=== PATIENT | female | born 1935 | race Caucasian/White ===

== ENCOUNTER → 2019-06-28 | Outpatient (CLI) | payer OTHER ==
--- NOTE | 2019-06-28 12:06 | Diagnostic Imaging Report ---
EXAMINATION: HIPS BILAT 3-4VWS (+/- PELVIS) INDICATION: Osteoarthritis COMPARISON: None FINDINGS: AP and frog-leg views of both hips were obtained. No acute fracture or dislocation. Alignment is anatomic. Mild degenerative changes of both hip joints with mild joint space narrowing and small osteophyte formation. A mortise calcification adjacent to the left greater trochanter is compatible with gluteal calcific tendinopathy. Phleboliths in the pelvis. IMPRESSION: No acute osseous injury. Degenerative changes of both hip joints. Left gluteal calcific tendinopathy. Signed by: Fernanda Espinal MD on 06/28/2019 12:02 PM
== END ==
LOC: RAD 10:15
PROVIDERS: ATTEND Internal Medicine Medical Oncology
DX: M16.0 Bilateral primary osteoarthritis of hip (principal)
CPT/HCPCS: 73522

== ENCOUNTER → 2023-07-19 | Outpatient (REF) | payer MEDICARE ==
[~2023-07-19] MED LIST: AMLODIPINE BESY10 MG PO; CLONIDINE HCL0.1 MG PO; FAMOTIDINE40 MG PO; LISINOPRIL40 MG PO; OMEPRAZOLE40 MG PO; SERTRALINE HCL100 MG PO; SUCRALFATE1 GM PO
== END ==
LOC: RAD 12:21
PROVIDERS: ATTEND Internal Medicine
DX: M54.50 Low back pain, unspecified (principal); M54.6 Pain in thoracic spine
CPT/HCPCS: 72072; 72110

== ENCOUNTER 2025-05-10 08:40 | Inpatient (IN) | payer MEDICARE ==
[2025-05-10] VITALS (7 sets, daily range): BP systolic 120–188; BP diastolic 38–80; PULSE 62–77; RESP 16–18; TEMP 97.6–98.7; O2SAT 90–100
[~2025-05-10] VITALS: Ht 160 cm; Wt 55.3 kg
[~2025-05-10 08:40] MED LIST changes: +CEFDINIR300 MG PO; +ZESTRIL40 MG PO
[2025-05-10 09:27] LABS: BASOPHILS % 1.2 % (0.0-1.0); EOSINOPHILS % 1.2 % (0.0-6.0); LYMPHOCYTES % 11.9 % (18.0-39.1); MONOCYTES % 9.0 % (4.4-11.3); NEUTROPHILS % 76.4 % (38.7-80.0); RED CELL DISTRIBUTION WIDTH 13.8 % (11.7-14.4)
[2025-05-10 10:01] LABS: EST GLOMERULAR FILTRATION RATE 39.0 ML/MIN (>=60)
[2025-05-10] MEDS: HYDROCHLOROTHIAZIDE 25 MG TAB PO ONE (10:15)
[2025-05-10] MEDS: AMLODIPINE BESYLATE 10 MG TAB PO ONE (10:15)
[2025-05-10] MEDS ORDERED: SODIUM CHLORIDE FLUSH 10 ML SYR INJ PRN (10:15)
[2025-05-10 15:36] LABS: % IRON SATURATION 6.0 % (15-50)
[2025-05-10] MEDS ORDERED: HYDROCHLOROTHIA25 MG PO (15:52)
[2025-05-10] MEDS ORDERED: CLONIDINE HCL0.1 MG PO (15:54)
[2025-05-10] MEDS: HYDRALAZINE HCL 20 MG/ML VIAL IV PRN (16:07)
[2025-05-10] MEDS ORDERED: POLYETHYLENE GLYCOL 3350 17 GM PACK PO PRN (18:30)
[2025-05-10] MEDS ORDERED: ACETAMINOPHEN 325 MG TAB PO PRN (18:30)
[2025-05-10] MEDS: MELATONIN 5 MG TABLET PO ONE (20:44)
[2025-05-11] VITALS (8 sets, daily range): BP systolic 141–174; BP diastolic 45–58; PULSE 70–77; RESP 16–18; TEMP 97.9–99.1; O2SAT 100
[2025-05-11 06:44] LABS: BASOPHILS % 1.1 % (0.0-1.0); EOSINOPHILS % 1.8 % (0.0-6.0); LYMPHOCYTES % 11.4 % (18.0-39.1); MONOCYTES % 11.4 % (4.4-11.3); NEUTROPHILS % 74.0 % (38.7-80.0); RED CELL DISTRIBUTION WIDTH 13.6 % (11.7-14.4)
[2025-05-11 07:32] LABS: EST GLOMERULAR FILTRATION RATE 39.0 ML/MIN (>=60)
[2025-05-11] MEDS ORDERED: SODIUM FERRIC GLUCONATE COMPLX 125 MG in SODIUM CHLORIDE 0.9% 100 ML IV SCH (09:00)
[2025-05-11] MEDS: DOCUSATE SODIUM 100 MG CAP PO SCH (09:00)
[2025-05-11] MEDS: SENNOSIDES 8.6 MG TAB PO SCH (09:00)
[2025-05-11] MEDS: AMLODIPINE BESYLATE 10 MG TAB PO SCH (09:07)
[2025-05-11] MEDS: HYDROCHLOROTHIAZIDE 25 MG TAB PO SCH (09:07)
[2025-05-11] MEDS: LISINOPRIL 20 MG TAB PO SCH (09:07)
[2025-05-11] MEDS: SODIUM CHLORIDE 0.9% 250ML 250 ML IV ONE (09:08)
[2025-05-11] MEDS: PANTOPRAZOLE SOD 40 MG TABEC PO SCH ×2 (09:08→09:31)
[2025-05-11] MEDS: SODIUM FERRIC GLUCONATE COMPLX 125 MG in SODIUM CHLORIDE 0.9% 100 ML IV SCH (09:46)
[2025-05-11] MEDS: ONDANSETRON HCL INJ 2MG/ML 2ML 2 MG/ML VIAL IV PRN (14:09)
[2025-05-11] MEDS: TRAZODONE HCL 50 MG TAB PO PRN (21:34)
[2025-05-12 05:30] VITALS: BP 155/56; PULSE 81; RESP 16; TEMP 98.3; O2SAT 99
[2025-05-12 05:52] LABS: BASOPHILS % 0.7 % (0.0-1.0); EOSINOPHILS % 1.8 % (0.0-6.0); LYMPHOCYTES % 10.1 % (18.0-39.1); MONOCYTES % 11.4 % (4.4-11.3); NEUTROPHILS % 75.6 % (38.7-80.0); RED CELL DISTRIBUTION WIDTH 14.1 % (11.7-14.4)
[2025-05-12 06:09] LABS: EST GLOMERULAR FILTRATION RATE 33.0 ML/MIN (>=60)
[2025-05-12 08:00] VITALS: BP 156/52; PULSE 66; RESP 16; TEMP 98.6; O2SAT 97
[2025-05-12 09:00] VITALS: BP 156/52; PULSE 66; RESP 16; TEMP 98.6; O2SAT 97
[2025-05-12] MEDS ORDERED: SODIUM CHLORIDE 0.9% 1000ML 1,000 ML IV SCH (11:30)
[2025-05-12 12:00] VITALS: BP 173/52; PULSE 66; RESP 16; TEMP 99.4; O2SAT 100
[2025-05-12] MEDS: SODIUM CHLORIDE 0.9% 1000ML 500 ML IV SCH (12:15)
[2025-05-12 12:25] VITALS: BP 173/52
[2025-05-12] MEDS: SODIUM CHLORIDE 0.9% 500ML 500 ML ONE (12:47)
== END 2025-05-12 16:05 | disposition home or self-care (01) | DRG 305 ==
LOC: ER 08:47 → ERHOLD 10:08 → MED/SURG 13:42 → OBSVTOIN 05-11 08:05
PROVIDERS: ADMIT Internal Medicine; ATTEND Internal Medicine
PROC: 30233N1 Transfusion of Nonautologous Red Blood Cells into Peripheral Vein, Percutaneous Approach (ICD-10-PCS; principal; 2025-05-11)
DX: I16.0 Hypertensive urgency (principal); N17.9 Acute kidney failure, unspecified; D62 Acute posthemorrhagic anemia; I67.82 Cerebral ischemia; I12.9 Hypertensive chronic kidney disease with stage 1 through stage 4 chronic kidney disease, or unspecified chronic kidney disease; N18.9 Chronic kidney disease, unspecified; K31.819 Angiodysplasia of stomach and duodenum without bleeding; D63.8 Anemia in other chronic diseases classified elsewhere; I70.8 Atherosclerosis of other arteries; E53.8 Deficiency of other specified B group vitamins; R41.81 Age-related cognitive decline; F41.1 Generalized anxiety disorder; R41.3 Other amnesia; R53.1 Weakness; R53.83 Other fatigue; R53.81 Other malaise; Z91.148 Patient's other noncompliance with medication regimen for other reason; Z95.820 Peripheral vascular angioplasty status with implants and grafts; Z87.11 Personal history of peptic ulcer disease; Z79.899 Other long term (current) drug therapy
CPT/HCPCS: 36415; 80053; 82607; 82728; 83540; 84466; 85014; 85018; 85025; 86850; 86900; 86920; 99284; G0378; J0360; J2405; J2470; J2916; J7040; J7050; P9016